=== PATIENT | female | born 1985 | race Caucasian/White ===

== ENCOUNTER 2016-12-06 19:27 | Emergency (ER) | payer OTHER ==
[~2016-12-06] VITALS: Ht 172.7 cm; Wt 83.1 kg
[~2016-12-06 19:27] MED LIST: LEVSIN0.125 MG PO
[2016-12-06 20:29] LABS: MCH 31.7 PG (29.0-34.0); MCHC 33.4 G/DL (30.0-36.0); MCV 94.9 FL (83-99); MEAN PLAT.VOLUME 10.4 uM^3 (9.5-12.4); PLATELET COUNT 244 K/uL (156-360); RBC DIS.WIDTH-CV 13.2 % (11.8-14.6); RBC DIS.WIDTH-SD 45.7 % (39-53); RED BLOOD COUNT 4.32 M/uL (3.80-5.20); WHITE BLOOD COUNT 10.9 K/uL (4.1-10.2)
[2016-12-06 20:43] LABS: CHLORIDE 107 mEq/L (99-109); POTASSIUM 4.1 mEq/L (3.7-5.4); SODIUM 141 mEq/L (136-147)
[2016-12-06 20:44] LABS: GLUCOSE 82 mg/dL (70-99)
[2016-12-06 20:46] LABS: ANION GAP 10 MEQ/L (2-14)
[2016-12-06 20:48] LABS: GFR ESTIMATE (CALCULATED) > 59 mL/min/
[2016-12-06 20:49] LABS: UREA NITROGEN (BUN) 10 mg/dL (9-23)
[2016-12-06 20:59] LABS: QUANTITATIVE HCG < 4.0 MIU/ML
[2016-12-06] MEDS ORDERED: ZOFRAN4 MG PO (23:33)
[2016-12-06] MEDS ORDERED: MORPHINE SULFAT15 MG PO (23:33)
[2016-12-07 00:07] VITALS: BP 118/74
== END 2016-12-07 00:10 | disposition home or self-care (01) ==
LOC: EME 19:27
DX: K50.90 Crohn's disease, unspecified, without complications (principal); R10.84 Generalized abdominal pain; Z87.891 Personal history of nicotine dependence
CPT/HCPCS: 74177; 80048; 84702; 85027; 86900; 86901; 99281; 99284; J1885; J2270; J2405; J2930; J7030